=== PATIENT | male | born 1980 | race Caucasian/White ===

== ENCOUNTER → 2016-07-08 | Outpatient (CLI) | payer BC ==
--- NOTE | 2016-07-08 19:11 | CT ---
EXAMINATION TYPE: CT abdomen pelvis wo/w con DATE OF EXAM: 07/08/2016 6:16 PM COMPARISON: NONE HISTORY: Generalized abdominal pain, chronic pancreatitis. CT DLP: 1633.00 mGycm Automated exposure control for dose reduction was used. TECHNIQUE: Helical acquisition of images was performed from the lung bases through the pelvis. CONTRAST: Performed with Oral Contrast and without and with IV Contrast, patient injected with 100 mL of Omnipa que 300. FINDINGS: The lung bases are clear of consolidation. There is no pleural effusion. Heart size is normal. Liver spleen gallbladder appear normal. Bile ducts are not dilated. Pancreas is not enlarged. There i s minimal fat stranding on the anterior aspect of the pancreatic head. I see no definite pancreatic m ass. There is no adrenal mass. Kidneys show satisfactory contrast opacification. There is no hydronephrosi s. Noncontrast images show no renal stone. There is no retroperitoneal adenopathy. There is no ascite s. Bladder distends smoothly. I see no intestinal wall thickening. There are no dilated loops. I see no bony destructive process. Lumbar vertebra appear normal. There is slight decreased density in the liver consistent with fatty infiltration on the noncontrast images.: Normal appendix IMPRESSION: THERE IS EVIDENCE OF MILD FATTY INFILTRATION OF LIVER. THERE IS MILD FAT STRANDING ANTERIOR TO THE PA NCREATIC HEAD CONSISTENT WITH MILD FOCAL PANCREATITIS. NO CALCIFICATION OR PSEUDOCYST SEEN.
== END | disposition home or self-care (01) ==
LOC: RADCTMAIN 15:15
PROVIDERS: ATTEND Family Medicine
DX: K76.0 Fatty (change of) liver, not elsewhere classified (principal)
CPT/HCPCS: 74178; Q9967

== ENCOUNTER → 2019-06-03 | Outpatient (CLI) | payer OTHER ==
--- NOTE | 2019-06-03 09:50 | US ---
EXAMINATION TYPE: US abdomen complete DATE OF EXAM: 06/03/2019 COMPARISON: CT dated 07/08/2016 and ultrasound dated 03/07/2016 CLINICAL HISTORY: R94.5 ABN RESULTS OF LIVER FUNCTIONS,F10.10 ALCOHOL ABUSE. Abnormal labs. No abdom en pain. EXAM MEASUREMENTS: Liver Length: 15.8 cm Gallbladder Wall: 0.2 cm CBD: 0.3 cm Spleen: 8.4 cm Right Kidney: 10.8 x 5.0 x 4.8 cm Left Kidney: 10.7 x 5.4 x 5.8 cm Pancreas: Heterogenous and hypoechoic. Liver: There is increased echogenicity of the hepatic parenchyma with diminished visualization of th e portal triads most commonly relating to hepatic steatosis and limiting evaluation for underlying he patic masses. Gallbladder: wnl Evidence for sonographic Belle's sign: neg CBD: wnl Spleen: wnl Right Kidney: No hydronephrosis or masses seen Left Kidney: No hydronephrosis or masses seen Upper IVC: wnl Abd Aorta: No AAA visualized. The intrahepatic portion of the IVC and proximal abdominal aorta are within normal limits. There is no evidence of cholelithiasis. Common bile duct is unremarkable. The visualized portions of the dhaliwal creas are homogenous. The spleen is unremarkable. Kidneys are symmetric and free of hydronephrosis. No renal lesions are seen. IMPRESSION: 1. Heterogenous hepatic echotexture that may be on the basis of hepatic steatosis or other hepatocell ular disease in this patient with known alcohol abuse. 2. Heterogenous appearance of the pancreas that may be on the basis of acute or chronic pancreatitis. Correlate with serum amylase and lipase.
== END | disposition home or self-care (01) ==
LOC: RADUSWWP 07:33
PROVIDERS: ATTEND Family Medicine
DX: F10.10 Alcohol abuse, uncomplicated (principal); R93.2 Abnormal findings on diagnostic imaging of liver and biliary tract
CPT/HCPCS: 76700

== ENCOUNTER → 2022-12-01 | Outpatient (CLI) | payer OTHER ==
--- NOTE | 2022-12-02 02:42 | EEG ---
ELECTROENCEPHALOGRAM REPORT CLINICAL HISTORY: This is a 42-year-old gentleman with reported seizure-like activity about a week ago, as well as history of alcohol use that is reported. The video EEG is obtained to evaluate for seizure epileptiform activity. RELEVANT MEDICATION: None. The patient is not on any antiepileptic drugs that is reported on the medical chart. EEG TYPE: A routine 21-channel EEG is performed with video using the 10/20 electrode placement system. DESCRIPTION: Wakefulness is only obtained. During awake state, the posterior-dominant rhythm consists of low to moderate voltage of 9 to 9.5 hertz activity that is well modulated and well sustained. There is no physiological sleep architecture. There is no focal slowing. Interictal and ictal are none. ACTIVATION PROCEDURE: Photic stimulation did not evoke a positive driving response. There is no abnormality during photic stimulation. Hyperventilation is not performed. CLINICAL INTERPRETATION: This is a normal routine EEG. There is no focal slowing, epileptiform discharge or seizure on the EEG. A normal routine EEG does not rule out underlying epilepsy. Clinical correlation is recommended. MMIDALIA / WILLYN: [id number] /
== END ==
LOC: NEUROMAIN 07:30
PROVIDERS: ATTEND Family Medicine
DX: G40.89 Other seizures (principal)
CPT/HCPCS: 95816

== ENCOUNTER → 2023-07-25 | Outpatient (CLI) | payer OTHER ==
--- NOTE | 2023-07-25 15:26 | US ---
EXAMINATION TYPE: US liver DATE OF EXAM: 07/25/2023 COMPARISON: 08/02/2022 CLINICAL INDICATION: Male, 43 years old with history of R93.2 ABNORMAL FINDINGS ON DX IMAGING OF LIVE R AND; abnormal liver function test. TECHNIQUE: Multiple sonographic images of the right upper quadrant are obtained. FINDINGS: EXAM MEASUREMENTS: Liver Length: 15.5 cm Gallbladder Wall: .2 cm CBD: .3 cm Right Kidney: 11.3 x 5.0 x 5.0 cm Pancreas: No gross abnormality Liver: Normal homogeneous appearance without focal lesion. The 1 cm echogenic lesion seen previously not seen today. Gallbladder: wnl Evidence for sonographic Belle's sign: no CBD: wnl Right Kidney: wnl IMPRESSION: No gallstones or biliary ductal dilatation. Normal homogeneous appearance of the liver.
== END | disposition home or self-care (01) ==
LOC: RADUSWWP 07:16
PROVIDERS: ATTEND Family Medicine
DX: R93.2 Abnormal findings on diagnostic imaging of liver and biliary tract (principal)
CPT/HCPCS: 76705

== ENCOUNTER 2024-10-03 12:52 | Inpatient (IN) | payer OTHER ==
[2024-10-03] MEDS ORDERED: ONDANSETRON 4 MG/2 ML VIAL IVP PRN (22:32)
[2024-10-03] MEDS: LORazepam 1 MG/0.5 ML VIAL IV PRN ×2 (22:46→23:47)
[2024-10-03] MEDS: SODIUM CHLORIDE 0.9% 1,000 ML IV SCH (22:54)
[2024-10-03] MEDS: chlordiazePOXIDE 25 MG CAP PO SCH (22:55)
[2024-10-04] MEDS: HALOPERIDOL LACTATE 5 MG/ML 1 ML VIAL IVP PRN ×2 (00:09→13:39)
[2024-10-04 01:37] LABS: Glucose,Whole Blood 122 mg/dL (70-110)
[2024-10-04] MEDS: DEXMEDETOMIDINE/0.9% NACL(PMX) 400 MCG in EMPTY BAG 1 BAG IV SCH (01:46)
[2024-10-04 03:06] LABS: Basophils # (A) 0.02 10*3/uL (0.00-0.10); Basophils % (A) 0.4 %; Eosinophils # (A) 0.01 10*3/uL (0.04-0.35); Eosinophils % (A) 0.2 %; HCT 42.2 % (39.6-50.0); HGB 15.2 g/dL (13.0-17.0); Immature Platelet Fraction 3.5 % (1.1-6.1); Lymphocytes # (A) 0.69 10*3/uL (0.90-5.00); Lymphocytes % (A) 12.8 %; MCH 32.8 pg (27.0-32.0); MCV 91.1 fL (80.0-97.0); Mean Platelet Volume 9.7 fL (9.5-12.2); Monocytes # (A) 0.69 10*3/uL (0.20-1.00); Monocytes % (A) 12.8 %; Neutrophils # (A) 3.97 10*3/uL (1.80-7.70); Neutrophils % (A) 73.6 %; Platelet Count 132 10*3/uL (140-440); RBC 4.63 10*6/uL (4.40-5.60); RDW 13.1 % (11.5-14.5); WBC 5.39 10*3/uL (4.50-10.00)
[2024-10-04 03:26] LABS: African American GFR (CKD) >90 (>60 ml/min/1.73 sqM); Anion Gap 11 mmol/L; Blood Urea Nitrogen 10 mg/dL (9-20); Calcium 9.8 mg/dL (8.4-10.2); Carbon Dioxide 24 mmol/L (22-30); Chloride 96 mmol/L (98-107); Glucose 110 mg/dL (74-99); Magnesium 1.8 mg/dL (1.6-2.3); Non-African American GFR(CKD) >90 (>60 ml/min/1.73 sqM); Potassium 3.3 mmol/L (3.5-5.1); Sodium 131 mmol/L (137-145)
[2024-10-04] MEDS ORDERED: Magnesium Replacement Protocol 1 EACH MISC MISCELLANE PRN (03:47)
[2024-10-04] MEDS ORDERED: Potassium Replacement Protocol 1 EACH MISC MISCELLANE PRN (03:47)
[2024-10-04] MEDS: MAGNESIUM SULFATE-D5W PMX 1 GM in DEXTROSE/WATER 1 100ML.BAG IVPB ONE (04:34)
[2024-10-04] MEDS: POTASSIUM CHLORIDE ER 20 MEQ TAB.ER PO SCH (05:30)
[2024-10-04] MEDS: ATORVASTATIN 40 MG TAB PO SCH (09:18)
[2024-10-04] MEDS: THIAMINE 100 MG TAB PO SCH (09:18)
[2024-10-04] MEDS: QUEtiapine 50 MG TAB PO SCH (09:18)
[2024-10-04] MEDS: LOSARTAN 50 MG TAB PO SCH (09:18)
--- NOTE | 2024-10-04 10:27 | P.CNPUL ---
History of Present Illness Consult date: 10/04/24 Requesting physician: Carly Peoples Reason for consult: other Chief complaint: Alcohol withdrawal syndrome History of present illness: Pulmonary consult dated October 04, 2024. 44-year-old male who apparently was directly admitted to the hospital, from [facility], for alcohol withdrawal. I was notified about this patient, at about 1:15 in the morning, and we decided to move the patient down to the intensive care unit, so that he could be closely monitored and manage, and potentially started on dexmedetomidine. Currently there are no notes about this patient, and the patient was directly admitted to the floor. Anyway, he is seen this morning in the intensive care unit. He is quite agitated, and confused. The patient is currently on room air. He is getting saline at 50 cc an hour. The dexmedetomidine was turned. He is getting Ativan, Haldol, and we added Seroquel. He apparently has a history of hypertension, hyperlipidemia, as well as alcohol abuse, and pancreatitis. Apparently he drinks up to 24 beers a day. We cannot really get any additional history on him. And again, there is no history in the record. Current laboratory data includes a white count of 5.39, hemoglobin 15.2, hematocrit 42.2, and platelet count 132,000. Sodium 131, potassium 3.3, chloride 76, CO2 24, anion gap 11, BUN 10, creatinine 0.51. Glucose is 110. Calcium 9.8. Outpatient medications included hydrochlorothiazide, losartan, and Lipitor. The patient apparently does smoke cigarettes. Unclear as to whether or not he uses any illegal drugs. Review of Systems REVIEW OF SYSTEMS: CONSTITUTIONAL: Alcohol withdrawal syndrome NEUROLOGIC: [ Negative.] HEENT: [ Negative.] CARDIAC: [Negative.] PULMONARY: [Negative.] GI: [Negative.] : [Negative.] RHEUMATOLOGIC: [ Negative.] IMMUNOLOGIC: [ Negative.] ENDOCRINE: [Negative. ] DERMATOLOGIC: [Negative.] Past Medical History Smoking Status: Current every day smoker Medications and Allergies Home Medications Medication Instructions Recorded Confirmed Type Atorvastatin [Lipitor] 40 mg PO DAILY 10/04/24 10/04/24 History Losartan [Cozaar] 50 mg PO DAILY 10/04/24 10/04/24 History hydroCHLOROthiazide [Hydrodiuril] 25 mg PO DAILY 10/04/24 10/04/24 History Allergies Allergy/AdvReac Type Severity Reaction Status Date / Time No Known Allergies Allergy Verified 10/04/24 08:26 Physical Exam Osteopathic Statement: *. No significant issues noted on an osteopathic structural exam other than those noted in the History and Physical/Consult. Vitals: Vital Signs Temp Pulse Pulse Resp BP BP Pulse Ox 10/04/24 10:00 75 19 119/87 96 10/04/24 09:00 80 23 103/73 10/04/24 08:00 98.4 F 70 23 120/82 97 10/04/24 07:00 69 21 140/89 96 10/04/24 06:00 70 19 137/88 99 10/04/24 05:00 75 21 148/93 98 10/04/24 04:00 98.5 F 76 20 137/93 97 10/04/24 03:00 75 20 139/97 10/04/24 02:00 85 18 147/99 98 10/04/24 01:37 14 136/103 97 10/04/24 00:00 99.2 F 102 H 18 142/84 98 10/03/24 23:21 99.4 F 98 18 136/91 98 Intake and Output 10/03/24 10/04/24 10/04/24 22:59 06:59 14:59 Intake Total 789.867 207.394 Output Total 850 Balance -60.133 207.394 Intake: IV 10 Invasive Line 1 10 Intake, IV Titration 279.867 207.394 Amount Dexmedetomidine/0.9% NaCl 29.867 7.394 (Pmx) 400 mcg In Empty Bag 1 bag @ 0.2 MCG/KG/HR 3.18 mls/hr IV .Q24H [facility] Rx#:[id number] Sodium Chloride 0.9% 1, 250 200 000 ml @ 50 mls/hr IV . Q20H [facility] Rx#:[id number] Oral 500 Output: Urine 850 Other: Voiding Method Urinal Urinal # Voids 0 Weight 63.6 kg 61.1 kg No acute distress, confused, blank stare, no respiratory distress. Not able to give much history. HEENT examination is grossly unremarkable. Mucous membranes are moist. No oral lesions. Neck supple. Full range of motion. No adenopathy thyromegaly or neck vein distention. Cardiovascular examination reveals regular rhythm rate. S1-S2 normal. No S3 or S4. No discernible murmur noted. Lungs reveal clear breath sounds. Breath sounds are equal bilaterally. No adventitious lung sounds including wheezes rhonchi or crackles. Abdomen soft bowel sounds are heard. No masses or tenderness. Extremities are intact. No cyanosis clubbing or edema. Skin is without rash or lesion. Neurologic examination is brief but nonfocal. Results - Laboratory Findings CBC and BMP: 10/04/24 02:49 10/04/24 02:49 Abnormal lab findings: Abnormal Labs 10/04/24 10/04/24 10/04/24 01:36 02:49 02:49 MCH 32.8 H Plt Count 132 L Lymphocytes # 0.69 L Eosinophils # 0.01 L Sodium 131 L Potassium 3.3 L Chloride 96 L Creatinine 0.51 L Glucose 110 H POC Glucose (mg/dL) 122 H Assessment and Plan Assessment: Alcohol withdrawal syndrome. History of heavy alcohol consumption, primarily beer, up to 24 cans a day. History of hypertension. History of hyperlipidemia. Prior history of pancreatitis. Plan: Plan dated October 04, 2024. The patient was directly admitted to the hospital, to an inpatient floor, and then transferred down to the intensive care unit, because of alcohol withdrawal syndrome. The patient was receiving Ativan and Haldol on the floor, and, he was quite agitated, and confused. We transferred him down to the intensive care unit, for closer monitoring and management. The patient was given dexmedetomidine. Currently he is off of that medication. We increased doses of his other medications, and add Seroquel to the regimen. Labs are reviewed. There is no x-ray. Prognosis is guarded. We will continue to follow. Dictation was produced using [employer] software. Please excuse any grammatical, word or spelling errors. Time with Patient: Greater than 30
[2024-10-05] MEDS: ACETAMINOPHEN TAB 325 MG TAB PO PRN (05:09)
--- NOTE | 2024-10-05 07:51 | P.HPIM ---
History of Present Illness H&P Date: 10/04/24 Chief Complaint: Acute alcohol withdrawal 44-year-old male patient with history of hypertension, hyperlipidemia, history of pancreatitis, directly admitted to the hospital, from [facility], for alcohol withdrawal. Upon arrival to the hospital, critical care service was notified and decided to move the patient down to the intensive care unit and started on dexmedetomidine. Upon arrival to ICU patient was quite agitated, and confused. The patient is currently sleepy and barely arousable on tactile stimulation; remains on room air. Patient is getting Ativan, Haldol and Seroquel. The patient apparently does smoke cigarettes. Unclear as to whether or not he uses any illegal drugs. According to the chart patient drinks up to 24 beers a day. -- Blood work revealed a white count of 5.39, hemoglobin 15.2, hematocrit 42.2, and platelet count 132,000. Sodium 131, potassium 3.3, chloride 76, CO2 24, anion gap 11, BUN 10, creatinine 0.51. Glucose is 110. Calcium 9.8. Outpatient medications included hydrochlorothiazide, losartan, and Lipitor. Review of Systems ROS unobtainable: due to mental status Past Medical History Smoking Status: Current every day smoker Medications and Allergies Home Medications Medication Instructions Recorded Confirmed Type Atorvastatin [Lipitor] 40 mg PO DAILY 10/04/24 10/04/24 History Losartan [Cozaar] 50 mg PO DAILY 10/04/24 10/04/24 History hydroCHLOROthiazide [Hydrodiuril] 25 mg PO DAILY 10/04/24 10/04/24 History Allergies Allergy/AdvReac Type Severity Reaction Status Date / Time No Known Allergies Allergy Verified 10/04/24 08:26 Physical Exam Vitals: Vital Signs Temp Pulse Pulse Resp BP BP Pulse Ox 10/04/24 11:00 77 21 110/78 97 10/04/24 10:00 75 19 119/87 96 10/04/24 09:00 80 23 103/73 10/04/24 08:00 98.4 F 70 23 120/82 97 10/04/24 07:00 69 21 140/89 96 10/04/24 06:00 70 19 137/88 99 10/04/24 05:00 75 21 148/93 98 10/04/24 04:00 98.5 F 76 20 137/93 97 10/04/24 03:00 75 20 139/97 10/04/24 02:00 85 18 147/99 98 10/04/24 01:37 14 136/103 97 10/04/24 00:00 99.2 F 102 H 18 142/84 98 10/03/24 23:21 99.4 F 98 18 136/91 98 Intake and Output 10/03/24 10/04/24 10/04/24 22:59 06:59 14:59 Intake Total 789.867 257.394 Output Total 850 Balance -60.133 257.394 Intake: IV 10 Invasive Line 1 10 Intake, IV Titration 279.867 257.394 Amount Dexmedetomidine/0.9% NaCl 29.867 7.394 (Pmx) 400 mcg In Empty Bag 1 bag @ 0.2 MCG/KG/HR 3.18 mls/hr IV .Q24H [facility] Rx#:[id number] Sodium Chloride 0.9% 1, 250 250 000 ml @ 50 mls/hr IV . Q20H [facility] Rx#:[id number] Oral 500 Output: Urine 850 Other: Voiding Method Urinal Urinal # Voids 0 Weight 63.6 kg 61.1 kg No acute distress; arousable with tactile stimulation. HEENT examination is grossly unremarkable. Mucous membranes are moist. No oral lesions. Neck supple. Full range of motion. No adenopathy thyromegaly or neck vein distention. Cardiovascular examination reveals regular rhythm rate. S1-S2 normal. No S3 or S4. No discernible murmur noted. Lungs reveal clear breath sounds. Breath sounds are equal bilaterally. No adventitious lung sounds including wheezes rhonchi or crackles. Abdomen soft bowel sounds are heard. No masses or tenderness. Extremities are intact. No cyanosis clubbing or edema. Skin is without rash or lesion. Neurologic examination; unable to evaluate; moves all extremities. Results CBC & Chem 7: 10/04/24 02:49 10/04/24 02:49 Labs: Abnormal Lab Results - Last 24 Hours (Table) 10/04/24 10/04/24 10/04/24 Range/Units 01:36 02:49 02:49 MCH 32.8 H (27.0-32.0) pg Plt Count 132 L (140-440) 10*3/uL Lymphocytes # 0.69 L (0.90-5.00) 10*3/uL Eosinophils # 0.01 L (0.04-0.35) 10*3/uL Sodium 131 L (137-145) mmol/L Potassium 3.3 L (3.5-5.1) mmol/L Chloride 96 L (98-107) mmol/L Creatinine 0.51 L (0.66-1.25) mg/dL Glucose 110 H (74-99) mg/dL POC Glucose (mg/dL) 122 H (70-110) mg/dL Assessment and Plan Assessment: 1. Acute alcohol withdrawal/history of alcohol abuse - Patient remains on IV Precedex; Librium 25 mg 3 times daily; IV Ativan per [facility] protocol; Seroquel 50 mg twice daily and Haldol 8 mg IV every 4 hours as needed for agitation and psychosis 2. Hyponatremia; likely related to alcohol abuse; patient is currently on IV fluid; monitor electrolytes closely 3. Hypokalemia; supplemented; continue to monitor electrolytes and supplement as needed 4. History of hypertension; HydroDIURIL 25 mg daily and losartan 50 mg daily; will resume once patient is more alert and responsive 5. Hyperlipidemia; Lipitor 40 mg daily DVT prophylaxis; SCDs CODE STATUS; full code
--- NOTE | 2024-10-05 09:20 | P.PN ---
Subjective Progress Note Date: 10/05/24 Principal diagnosis: Alcohol withdrawal syndrome. Pulmonary consult dated October 04, 2024. 44-year-old male who apparently was directly admitted to the hospital, from [facility], for alcohol withdrawal. I was notified about this patient, at about 1:15 in the morning, and we decided to move the patient down to the intensive care unit, so that he could be closely monitored and manage, and potentially started on dexmedetomidine. Currently there are no notes about this patient, and the patient was directly admitted to the floor. Anyway, he is seen this morning in the intensive care unit. He is quite agitated, and confused. The patient is currently on room air. He is getting saline at 50 cc an hour. The dexmedetomidine was turned. He is getting Ativan, Haldol, and we added Seroquel. He apparently has a history of hypertension, hyperlipidemia, as well as alcohol abuse, and pancreatitis. Apparently he drinks up to 24 beers a day. We cannot really get any additional history on him. And again, there is no history in the record. Current laboratory data includes a white count of 5.39, hemoglobin 15.2, hematocrit 42.2, and platelet count 132,000. Sodium 131, potassium 3.3, chloride 76, CO2 24, anion gap 11, BUN 10, creatinine 0.51. Glucose is 110. Calcium 9.8. Outpatient medications included hydrochlorothiazide, losartan, and Lipitor. The patient apparently does smoke cigarettes. Unclear as to whether or not he uses any illegal drugs. Progress note dated October 05, 2024. 44-year-old male with history of chronic alcohol abuse. The patient was admitted to the hospital with alcohol withdrawal syndrome, and transferred down to the intensive care unit, for more close monitoring, and management. Currently, the patient is seen today in room 256. He is on room air. He is getting saline at 50 cc an hour. He continues on dexmedetomidine at 0.3 mcg/kg/h. In addition, he is getting Librium, Ativan, and Haldol. No new labs today, other than a magnesium level of 1.7. Objective - Vital Signs Vital signs: Vital Signs Temp 99.1 F 10/05/24 08:00 Pulse 70 10/05/24 09:00 Resp 21 10/05/24 09:00 BP 138/87 10/05/24 09:00 Pulse Ox 97 10/05/24 09:00 FiO2 Intake & Output 10/04/24 10/05/24 10/05/24 18:59 06:59 18:59 Intake Total 890.589 653.662 395.306 Output Total 800 1250 Balance 90.589 -596.338 395.306 Weight 60.6 kg Intake: Intake, IV Titration 650.589 653.662 155.306 Amount Dexmedetomidine/0.9% NaCl 50.589 53.662 55.306 (Pmx) 400 mcg In Empty Bag 1 bag @ 0.2 MCG/KG/HR 3.18 mls/hr IV .Q24H [facility] Rx#:[id number] Sodium Chloride 0.9% 1, 600 600 100 000 ml @ 50 mls/hr IV . Q20H [facility] Rx#:[id number] Oral 240 240 Output: Urine 800 1250 Straight 750 Other: Voiding Method Urinal Urinal Urinal # Voids 0 0 0 - Exam No acute distress, confused, blank stare, no respiratory distress. Not able to give much history. HEENT examination is grossly unremarkable. Mucous membranes are moist. No oral lesions. Neck supple. Full range of motion. No adenopathy thyromegaly or neck vein distention. Cardiovascular examination reveals regular rhythm rate. S1-S2 normal. No S3 or S4. No discernible murmur noted. Lungs reveal clear breath sounds. Breath sounds are equal bilaterally. No adventitious lung sounds including wheezes rhonchi or crackles. Abdomen soft bowel sounds are heard. No masses or tenderness. Extremities are intact. No cyanosis clubbing or edema. Skin is without rash or lesion. Neurologic examination is brief but nonfocal. - Labs CBC & Chem 7: 10/04/24 02:49 10/04/24 02:49 Assessment and Plan Assessment: Alcohol withdrawal syndrome. History of heavy alcohol consumption, primarily beer, up to 24 cans a day. History of hypertension. History of hyperlipidemia. Prior history of pancreatitis. Plan: Plan dated October 04, 2024. The patient was directly admitted to the hospital, to an inpatient floor, and then transferred down to the intensive care unit, because of alcohol withdrawal syndrome. The patient was receiving Ativan and Haldol on the floor, and, he was quite agitated, and confused. We transferred him down to the intensive care unit, for closer monitoring and management. The patient was given dexmedet omidine. Currently he is off of that medication. We increased doses of his other medications, and add Seroquel to the regimen. Labs are reviewed. There is no x-ray. Prognosis is guarded. We will continue to follow. Dictation was produced using [employer] software. Please excuse any grammatical, word or spelling errors. Plan dated October 05, 2024. The patient is seen today in the intensive care unit, room 256. He continues on a number of different medications including Ativan, Librium, Haldol, Seroquel. He is also on dexmedetomidine right now at 0.3 mcg/kg/h. I have asked the nu es to continue to use the Ativan, and Haldol, [id number]. Additional recommendations and suggestions are forthcoming. Labs, x-rays, and medications are reviewed. Prognosis is guarded. We will continue to follow. Dictation was produced using [employer] software. Please excuse any grammatical, word or spelling errors. Time with Patient: Less than 30
[2024-10-05] MEDS ORDERED: Magnesium Replacement Protocol 1 EACH MISC MISCELLANE PRN (09:33)
[2024-10-05] MEDS: MAGNESIUM SULFATE-D5W PMX 1 GM in DEXTROSE/WATER 1 100ML.BAG IVPB ONE (09:43)
[2024-10-05 09:59] LABS: African American GFR (CKD) >90 (>60 ml/min/1.73 sqM); Anion Gap 11 mmol/L; Blood Urea Nitrogen 8 mg/dL (9-20); Calcium 9.5 mg/dL (8.4-10.2); Carbon Dioxide 21 mmol/L (22-30); Chloride 101 mmol/L (98-107); Glucose 104 mg/dL (74-99); Non-African American GFR(CKD) >90 (>60 ml/min/1.73 sqM); Potassium 3.6 mmol/L (3.5-5.1); Sodium 133 mmol/L (137-145)
[2024-10-05] MEDS ORDERED: Potassium Replacement Protocol 1 EACH MISC MISCELLANE PRN (10:03)
[2024-10-05] MEDS: POTASSIUM CHLORIDE ER 20 MEQ TAB.ER PO SCH (10:12)
--- NOTE | 2024-10-05 13:11 | P.PN ---
Subjective Progress Note Date: 10/05/24 44-year-old male patient with history of hypertension, hyperlipidemia, history of pancreatitis, directly admitted to the hospital, from [facility], for alcohol withdrawal. Upon arrival to the hospital, critical care service was notified and decided to move the patient down to the intensive care unit and started on dexmedetomidine. Upon arrival to ICU patient was quite agitated, and confused. The patient is currently sleepy and barely arousable on tactile stimulation; remains on room air. Patient is getting Ativan, Haldol and Seroquel. The patient apparently does smoke cigarettes. Unclear as to whether or not he uses any illegal drugs. According to the chart patient drinks up to 24 beers a day. -- Blood work revealed a white count of 5.39, hemoglobin 15.2, hematocrit 42.2, and platelet count 132,000. Sodium 131, potassium 3.3, chloride 76, CO2 24, anion gap 11, BUN 10, creatinine 0.51. Glucose is 110. Calcium 9.8. Outpatient medications included hydrochlorothiazide, losartan, and Lipitor. -- Patient remains in ICU; has been weaned off of Precedex; remains on IV Ativan per protocol along with Haldol and Librium Objective - Vital Signs Vital signs: Vital Signs Temp 102 F H 10/05/24 06:00 Pulse 74 10/05/24 07:00 Resp 19 10/05/24 07:00 BP 148/84 10/05/24 07:00 Pulse Ox 96 10/05/24 07:00 FiO2 Intake & Output 10/04/24 10/05/24 10/05/24 18:59 06:59 18:59 Intake Total 890.589 653.662 Output Total 800 1250 Balance 90.589 -596.338 Weight 60.6 kg Intake: Intake, IV Titration 650.589 653.662 Amount Dexmedetomidine/0.9% NaCl 50.589 53.662 (Pmx) 400 mcg In Empty Bag 1 bag @ 0.2 MCG/KG/HR 3.18 mls/hr IV .Q24H [facility] Rx#:[id number] Sodium Chloride 0.9% 1, 600 600 000 ml @ 50 mls/hr IV . Q20H [facility] Rx#:[id number] Oral 240 Output: Urine 800 1250 Straight 750 Other: Voiding Method Urinal Urinal # Voids 0 0 - Exam No acute distress; arousable with tactile stimulation. HEENT examination is grossly unremarkable. Mucous membranes are moist. No oral lesions. Neck supple. Full range of motion. No adenopathy thyromegaly or neck vein distention. Cardiovascular examination reveals regular rhythm rate. S1-S2 normal. No S3 or S4. No discernible murmur noted. Lungs reveal clear breath sounds. Breath sounds are equal bilaterally. No adventitious lung sounds including wheezes rhonchi or crackles. Abdomen soft bowel sounds are heard. No masses or tenderness. Extremities are intact. No cyanosis clubbing or edema. Skin is without rash or lesion. Neurologic examination; unable to evaluate; moves all extremities. - Labs CBC & Chem 7: 10/04/24 02:49 10/05/24 07:22 Assessment and Plan Assessment: 1. Acute alcohol withdrawal/history of alcohol abuse - Patient remains on IV Precedex; Librium 25 mg 3 times daily; IV Ativan per [facility] protocol; Seroquel 50 mg twice daily and Haldol 8 mg IV every 4 hours as needed for agitation and psychosis 2. Hyponatremia; likely related to alcohol abuse; patient is currently on IV f luid; monitor electrolytes closely 3. Hypokalemia; supplemented; continue to monitor electrolytes and supplement as needed 4. History of hypertension; HydroDIURIL 25 mg daily and losartan 50 mg daily; will resume once patient is more alert and responsive 5. Hyperlipidemia; Lipitor 40 mg daily DVT prophylaxis; SCDs CODE STATUS; full code
[2024-10-05] MEDS: IBUPROFEN 600 MG TAB PO PRN (16:02)
[2024-10-06 04:50] LABS: African American GFR (CKD) >90 (>60 ml/min/1.73 sqM); Anion Gap 8 mmol/L; Blood Urea Nitrogen 7 mg/dL (9-20); Calcium 9.7 mg/dL (8.4-10.2); Carbon Dioxide 23 mmol/L (22-30); Chloride 105 mmol/L (98-107); Glucose 100 mg/dL (74-99); Magnesium 1.9 mg/dL (1.6-2.3); Non-African American GFR(CKD) >90 (>60 ml/min/1.73 sqM); Potassium 4.1 mmol/L (3.5-5.1); Sodium 136 mmol/L (137-145)
--- NOTE | 2024-10-06 05:56 | P.PN ---
Subjective Progress Note Date: 10/06/24 Principal diagnosis: Alcohol withdrawal syndrome. Pulmonary consult dated October 04, 2024. 44-year-old male who apparently was directly admitted to the hospital, from [facility], for alcohol withdrawal. I was notified about this patient, at about 1:15 in the morning, and we decided to move the patient down to the intensive care unit, so that he could be closely monitored and manage, and potentially started on dexmedetomidine. Currently there are no notes about this patient, and the patient was directly admitted to the floor. Anyway, he is seen this morning in the intensive care unit. He is quite agitated, and confused. The patient is currently on room air. He is getting saline at 50 cc an hour. The dexmedetomidine was turned. He is getting Ativan, Haldol, and we added Seroquel. He apparently has a history of hypertension, hyperlipidemia, as well as alcohol abuse, and pancreatitis. Apparently he drinks up to 24 beers a day. We cannot really get any additional history on him. And again, there is no history in the record. Current laboratory data includes a white count of 5.39, hemoglobin 15.2, hematocrit 42.2, and platelet count 132,000. Sodium 131, potassium 3.3, chloride 76, CO2 24, anion gap 11, BUN 10, creatinine 0.51. Glucose is 110. Calcium 9.8. Outpatient medications included hydrochlorothiazide, losartan, and Lipitor. The patient apparently does smoke cigarettes. Unclear as to whether or not he uses any illegal drugs. Progress note dated October 05, 2024. 44-year-old male with history of chronic alcohol abuse. The patient was admitted to the hospital with alcohol withdrawal syndrome, and transferred down to the intensive care unit, for more close monitoring, and management. Currently, the patient is seen today in room 256. He is on room air. He is getting saline at 50 cc an hour. He continues on dexmedetomidine at 0.3 mcg/kg/h. In addition, he is getting Librium, Ativan, and Haldol. No new labs today, other than a magnesium level of 1.7. Progress note dated October 06, 2024. 44-year-old male seen in room 256. He is resting comfortably in bed. He is on room air. He is getting saline at 50 cc an hour. The patient has not required any additional dexmedetomidine. The patient was admitted with a history of al cohol abuse, and alcohol withdrawal syndrome. The patient was initially admitted to the general medical floor, but needed further monitoring and management, and dexmedetomidine. Current laboratory includes a sodium 136, potassium 4.1, chlorides 105, CO2 23, anion gap 8, BUN 7, creatinine 0.58. Gl ucose is 100. Calcium 9.7. Magnesium 1.9. Objective - Vital Signs Vital signs: Vital Signs Temp 98.4 F 10/06/24 04:00 Pulse 100 10/06/24 05:00 Resp 17 10/06/24 05:00 BP 159/102 10/06/24 05:00 Pulse Ox 98 10/06/24 05:00 FiO2 Intake & Output 10/05/24 10/05/24 10/06/24 06:59 18:59 06:59 Intake Total 364.186 1190.306 740 Output Total 1250 1100 700 Balance -596.338 255.306 40 Weight 60.6 kg 58.2 kg Intake: Intake, IV Titration 653.662 155.306 500 Amount Dexmedetomidine/0.9% NaCl 53.662 55.306 (Pmx) 400 mcg In Empty Bag 1 bag @ 0.2 MCG/KG/HR 3.18 mls/hr IV .Q24H [facility] Rx#:[id number] Sodium Chloride 0.9% 1, 600 100 500 000 ml @ 50 mls/hr IV . Q20H [facility] Rx#:[id number] Oral 1200 240 Output: Urine 1250 1100 700 Straight 750 Other: Voiding Method Urinal Urinal Toilet Urinal # Voids 0 0 0 - Exam No acute distress, confused, blank stare, no respiratory distress. Not able to give much history. HEENT examination is grossly unremarkable. Mucous membranes are moist. No oral lesions. Neck supple. Full range of motion. No adenopathy thyromegaly or neck vein distention. Cardiovascular examination reveals regular rhythm rate. S1-S2 normal. No S3 or S4. No discernible murmur noted. Lungs reveal clear breath sounds. Breath sounds are equal bilaterally. No adventitious lung sounds including wheezes rhonchi or crackles. Abdomen soft bowel sounds are heard. No masses or tenderness. Extremities are intact. No cyanosis clubbing or edema. Skin is without rash or lesion. Neurologic examination is brief but nonfocal. - Labs CBC & Chem 7: 10/04/24 02:49 10/06/24 04:10 Labs: Abnormal Lab Results - Last 24 Hours (Table) 10/05/24 10/06/24 Range/Units 07:22 04:10 Sodium 133 L 136 L (137-145) mmol/L Carbon Dioxide 21 L (22-30) mmol/L BUN 8 L 7 L (9-20) mg/dL Creatinine 0.57 L 0.58 L (0.66-1.25) mg/dL Glucose 104 H 100 H (74-99) mg/dL Assessment and Plan Assessment: Alcohol withdrawal syndrome. History of heavy alcohol consumption, primarily beer, up to 24 cans a day. History of hypertension. History of hyperlipidemia. Prior history of pancreatitis. Plan: Plan dated October 04, 2024. The patient was directly admitted to the hospital, to an inpatient floor, and then transferred down to the intensive care unit, because of alcohol withdrawal syndrome. The patient was receiving Ativan and Haldol on the floor, and, he was quite agitated, and confused. We transferred him down to the intensive care unit, for closer monitoring and management. The patient was given dexmedetomidine. Currently he is off of that medication. We increased doses of his other medications, and add Seroquel to the regimen. Labs are reviewed. There is no x-ray. Prognosis is guarded. We will continue to follow. Dictation was produced using [employer] software. Please excuse any grammatical, word or spelling errors. Plan dated October 05, 2024. The patient is seen today in the intensive care unit, room 256. He continues on a number of different medications including Ativan, Librium, Haldol, Seroquel. He is also on dexmedetomidine right now at 0.3 mcg/kg/h. I have asked the nurses to continue to use the Ativan, and Haldol, [id number]. Additional recommendations and suggestions are forthcoming. Labs, x-rays, and medications are reviewed. Prognosis is guarded. We will continue to follow. Dictation was produced using [employer] software. Please excuse any grammatical, word or spelling errors. Plan dated October 06, 2024. The patient appears to be doing reasonably well. He is on a number of different medications for his alcohol withdrawal syndrome, including Librium, Haldol, Ativan, and Seroquel. The patient appears to be relatively stable today. He has not required any more dexmedetomidine. He is currently on room air. The patient could be considered for possible transfer out of the intensive care unit. Labs, x-rays, and medications are reviewed. Prognosis is guarded. The patient has been counseled about alcohol cessation. Dictation was produced using [employer] software. Please excuse any grammatical, word or spelling errors. Time with Patient: Less than 30
[2024-10-06] MEDS: MAGNESIUM SULFATE-D5W PMX 1 GM in DEXTROSE/WATER 1 100ML.BAG IVPB ONE (06:10)
[2024-10-06] MEDS: LORazepam 1 MG/0.5 ML VIAL IV PRN (10:48)
[2024-10-06] MEDS: HALOPERIDOL LACTATE 5 MG/ML 1 ML VIAL IVP PRN (11:39)
[2024-10-06] MEDS: DEXMEDETOMIDINE/0.9% NACL(PMX) 400 MCG in EMPTY BAG 1 BAG IV SCH (12:51)
--- NOTE | 2024-10-06 18:37 | P.PN ---
Subjective Progress Note Date: 10/06/24 44-year-old male patient with history of hypertension, hyperlipidemia, history of pancreatitis, directly admitted to the hospital, from [facility], for alcohol withdrawal. Upon arrival to the hospital, critical care service was notified and decided to move the patient down to the intensive care unit and started on dexmedetomidine. Upon arrival to ICU patient was quite agitated, and confused. The patient is currently sleepy and barely arousable on tactile stimulation; remains on room air. Patient is getting Ativan, Haldol and Seroquel. The patient apparently does smoke cigarettes. Unclear as to whether or not he uses any illegal drugs. According to the chart patient drinks up to 24 beers a day. -- Blood work revealed a white count of 5.39, hemoglobin 15.2, hematocrit 42.2, and platelet count 132,000. Sodium 131, potassium 3.3, chloride 76, CO2 24, anion gap 11, BUN 10, creatinine 0.51. Glucose is 110. Calcium 9.8. Outpatient medications included hydrochlorothiazide, losartan, and Lipitor. -- Patient remains in ICU; has been weaned off of Precedex; remains on IV Ativan per protocol along with Haldol and Librium 10/06/2024 Patient is seen and evaluated sitting up in bedside chair; denies any specific complaints at this time; he is alert and responsive Vital signs are reviewed and are stable; he is on room air. He is getting saline at 50 cc an hour. The patient has not required any additional dexmedetomidine. The patient was admitted with a history of alcohol abuse, and alcohol withdrawal syndrome. The patient was initially admitted to the general medical floor, but needed further monitoring and management, and dexmedetomidine. Current laboratory includes a sodium 136, potassium 4.1, chlorides 105, CO2 23, anion gap 8, BUN 7, creatinine 0.58. Glucose is 100. Calcium 9.7. Magnesium 1.9. Patient has been taken off of IV Precedex; remains on IV Ativan per [facility] protocol with scheduled Librium and Seroquel; Haldol 4 mg every 4 hours as needed for agitation -Plan to transfer patient out of ICU Objective - Vital Signs Vital signs: Vital Signs Temp 98.4 F 10/06/24 04:00 Pulse 125 H 10/06/24 07:00 Resp 18 10/06/24 07:00 BP 147/102 10/06/24 07:00 Pulse Ox 100 10/06/24 07:00 FiO2 Intake & Output 10/05/24 10/06/24 10/06/24 18:59 06:59 18:59 Intake Total 6149.792 0272 50 Output Total 1100 1200 Balance 255.306 170 50 Weight 58.2 kg Intake: Intake, IV Titration 155.306 650 50 Amount Dexmedetomidine/0.9% NaCl 55.306 (Pmx) 400 mcg In Empty Bag 1 bag @ 0.2 MCG/KG/HR 3.18 mls/hr IV .Q24H [facility] Rx#:[id number] Magnesium Sulfate-D5w Pmx 100 1 gm In Dextrose/Water 1 100ml.bag @ 100 mls/hr IVPB ONCE ONE Rx#: [id number] Sodium Chloride 0.9% 1, 100 550 50 000 ml @ 50 mls/hr IV . Q20H [facility] Rx#:[id number] Oral 1200 720 Output: Urine 1100 1200 Other: Voiding Method Urinal Toilet Urinal # Voids 0 0 - Exam No acute distress; arousable with tactile stimulation. HEENT examination is grossly unremarkable. Mucous membranes are moist. No oral lesions. Neck supple. Full range of motion. No adenopathy thyromegaly or neck vein distention. Cardiovascular examination reveals regular rhythm rate. S1-S2 normal. No S3 or S4. No discernible murmur noted. Lungs reveal clear breath sounds. Breath sounds are equal bilaterally. No adventitious lung sounds including wheezes rhonchi or crackles. Abdomen soft bowel sounds are heard. No masses or tenderness. Extremities are intact. No cyanosis clubbing or edema. Skin is without rash or lesion. Neurologic examination; unable to evaluate; moves all extremities. - Labs CBC & Chem 7: 10/04/24 02:49 10/06/24 04:10 Labs: Abnormal Lab Results - Last 24 Hours (Table) 10/05/24 10/06/24 Range/Units 07:22 04:10 Sodium 133 L 136 L (137-145) mmol/L Carbon Dioxide 21 L (22-30) mmol/L BUN 8 L 7 L (9-20) mg/dL Creatinine 0.57 L 0.58 L (0.66-1.25) mg/dL Glucose 104 H 100 H (74-99) mg/dL Assessment and Plan Assessment: 1. Acute alcohol withdrawal/history of alcohol abuse - Patient remains on IV Precedex; Librium 25 mg 3 times daily; IV Ativan per [facility] protocol; Seroquel 50 mg twice daily and Haldol 8 mg IV every 4 hours as needed for agitation and psychosis 2. Hyponatremia; likely related to alcohol abuse; patient is currently on IV f luid; monitor electrolytes closely 3. Hypokalemia; supplemented; continue to monitor electrolytes and supplement as needed 4. History of hypertension; HydroDIURIL 25 mg daily and losartan 50 mg daily; will resume once patient is more alert and responsive 5. Hyperlipidemia; Lipitor 40 mg daily DVT prophylaxis; SCDs CODE STATUS; full code
[2024-10-07 06:39] LABS: African American GFR (CKD) >90 (>60 ml/min/1.73 sqM); Anion Gap 6 mmol/L; Blood Urea Nitrogen 9 mg/dL (9-20); Calcium 9.8 mg/dL (8.4-10.2); Carbon Dioxide 25 mmol/L (22-30); Chloride 103 mmol/L (98-107); Glucose 85 mg/dL (74-99); Non-African American GFR(CKD) >90 (>60 ml/min/1.73 sqM); Potassium 4.4 mmol/L (3.5-5.1); Sodium 134 mmol/L (137-145)
--- NOTE | 2024-10-07 12:24 | P.PN ---
Subjective Progress Note Date: 10/07/24 10/07/2024, patient is being seen for a follow-up. The patient is calm and comfortable and the patient was taken off the Precedex at around 4 AM this morning. His CIWA scale is at 2. He received a dose of Ativan 4 AM this morning at 1 mg. The patient remains on Librium 25 mg p.o. 3 times daily, Seroquel 50 mg p.o. twice daily and Ativan per CIWA protocol. Calm and comfortable. Resting comfortably in bed. Tolerating diet. No agitation. Sodium levels at 134, potassium is at 4.4, BUN is 9 with a creatinine of 0.5. No other significant events overnight. Remains on normal saline at rate of 50 c c an hour. Remains on Cozaar for blood pressure control. Receiving thiamine. Remains on Lipitor. Objective - Vital Signs Vital signs: Vital Signs Temp 97.7 F 10/07/24 04:00 Pulse 95 10/07/24 07:00 Resp 15 10/07/24 07:00 BP 144/98 10/07/24 07:00 Pulse Ox 99 10/07/24 07:00 FiO2 Intake & Output 10/06/24 10/07/24 10/07/24 18:59 06:59 18:59 Intake Total 4843.263 8687.871 50 Output Total 1200 1600 Balance 401.516 -518.129 50 Weight 58.6 kg Intake: Intake, IV Titration 641.516 601.871 50 Amount Dexmedetomidine/0.9% NaCl 41.516 51.871 (Pmx) 400 mcg In Empty Bag 1 bag @ 0.2 MCG/KG/HR 2.91 mls/hr IV .Q24H [facility] Rx#:[id number] Sodium Chloride 0.9% 1, 600 550 50 000 ml @ 50 mls/hr IV . Q20H [facility] Rx#:[id number] Oral 960 480 Output: Urine 1200 1600 Other: Voiding Method Toilet Toilet Urinal Urinal # Voids 1 0 - Exam The patient appeared well nourished and normally developed. Vital signs as documented. Lethargic, sleepy and able to communicate Head exam is unremarkable. No scleral icterus or corneal arcus noted. Neck is without jugular venous distension, thyromegaly, or carotid bruits. Carotid upstrokes are brisk bilaterally. Lungs are clear to auscultation and percussion. Cardiac exam reveals the PMI to be normally sized and situated. Rhythm is regular. First and second heart sounds normal. No murmurs, rubs or gallops. Abdominal exam reveals normal bowel sounds, no masses, no organomegaly and no aortic enlargement. Extremities are nonedematous and both femoral and pedal pulses are normal. Examination of the skin revealed no evidence of significant rashes, suspicious appearing nevi or other concerning lesions. Neurologically, the patient is awake and alert and the patient does not have any focal neurological deficit. Cranial nerves are essentially intact. Neurologic exam is nonfocal and there is no significant agitation or confusion or tremors. - Labs CBC & Chem 7: 10/04/24 02:49 10/07/24 05:33 Labs: Abnormal Lab Results - Last 24 Hours (Table) 10/07/24 Range/Units 05:33 Sodium 134 L (137-145) mmol/L Creatinine 0.58 L (0.66-1.25) mg/dL Assessment and Plan Plan: Delirium tremens secondary to alcohol withdrawal, recovering and the patient is currently off Precedex. CIWA scale from this morning is up to History of heavy alcohol consumption, primarily beer, up to 24 cans a day. History of hypertension. History of hyperlipidemia. Prior history of pancreatitis. Plan: Patient is currently on room air oxygen Normal saline at rate of 50 cc an hour Mental status is adequate and the patient is currently off Precedex Continue Librium 25 mg p.o. 3 times daily Continue Seroquel 50 mg p.o. twice daily Continue Ativan per CIWA protocol Monitor electrolytes Continue thiamine The patient can be transferred to regular medical surgical floor. Time with Patient: Greater than 30
[2024-10-08 05:00] LABS: African American GFR (CKD) >90 (>60 ml/min/1.73 sqM); Anion Gap 9 mmol/L; Blood Urea Nitrogen 8 mg/dL (9-20); Calcium 10.2 mg/dL (8.4-10.2); Carbon Dioxide 24 mmol/L (22-30); Chloride 104 mmol/L (98-107); Glucose 98 mg/dL (74-99); Non-African American GFR(CKD) >90 (>60 ml/min/1.73 sqM); Potassium 3.9 mmol/L (3.5-5.1); Sodium 137 mmol/L (137-145)
[2024-10-08 09:02] VITALS: BP 134/94; PULSE 96; RESP 17; TEMP 97.7
--- NOTE | 2024-10-08 10:15 | P.PN ---
Subjective Progress Note Date: 10/08/24 10/07/2024, patient is being seen for a follow-up. The patient is calm and comfortable and the patient was taken off the Precedex at around 4 AM this morning. His CIWA scale is at 2. He received a dose of Ativan 4 AM this morning at 1 mg. The patient remains on Librium 25 mg p.o. 3 times daily, Seroquel 50 mg p.o. twice daily and Ativan per [facility] protocol. Calm and comfortable. Resting comfortably in bed. Tolerating diet. No agitation. Sodium levels at 134, potassium is at 4.4, BUN is 9 with a creatinine of 0.5. No other significant events overnight. Remains on normal saline at rate of 50 c c an hour. Remains on Cozaar for blood pressure control. Receiving thiamine. Remains on Lipitor. 10/08/2024, the patient is sleeping. Based on the nursing staff, the patient did not sleep at all yesterday. However, he demonstrated no agitation. The patient is on Librium 25 mg p.o. 3 times daily. The patient is also on Seroquel 50 mg p.o. twice daily. Has not required any Ativan. Hemodynamically stable. He is on room air oxygen. Electrolytes are all within normal limits. No other sign ificant events overnight. No chest pain. No shortness of breath. No seizure activity. No agitation. No hallucinations. Objective - Vital Signs Vital signs: Vital Signs Temp 98.4 F 10/08/24 02:00 Pulse 81 10/08/24 02:00 Resp 16 10/08/24 02:00 BP 134/86 10/08/24 02:00 Pulse Ox 99 10/08/24 02:00 FiO2 Intake & Output 10/07/24 10/08/24 10/08/24 18:59 06:59 18:59 Intake Total 630 Balance 630 Weight 59.6 kg Intake: IV 100 Sodium Chloride 0.9% 1, 100 000 ml @ 50 mls/hr IV . Q20H [facility] Rx#:[id number] Intake, IV Titration 50 Amount Sodium Chloride 0.9% 1, 50 000 ml @ 50 mls/hr IV . Q20H [facility] Rx#:[id number] Oral 480 Other: Voiding Method Toilet Toilet Urinal # Voids 4 - Exam The patient appeared well nourished and normally developed. Vital signs as do cumented. Lethargic, sleepy and able to communicate Head exam is unremarkable. No scleral icterus or corneal arcus noted. Neck is without jugular venous distension, thyromegaly, or carotid bruits. C arotid upstrokes are brisk bilaterally. Lungs are clear to auscultation and percussion. Cardiac exam reveals the PMI to be normally sized and situated. Rhythm is regular. First and second heart sounds normal. No murmurs, rubs or gallops. Abdominal exam reveals normal bowel sounds, no masses, no organomegaly and no aortic enlargement. Extremities are nonedematous and both femoral and pedal pulses are normal. Examination of the skin revealed no evidence of significant rashes, suspicious appearing nevi or other concerning lesions. Neurologically, the patient is awake and alert and the patient does not have any focal neurological deficit. Cranial nerves are essentially intact. Neurologic exam is nonfocal and there is no significant agitation or confusion or tremors. - Labs CBC & Chem 7: 10/04/24 02:49 10/08/24 04:28 Labs: Abnormal Lab Results - Last 24 Hours (Table) 10/08/24 Range/Units 04:28 BUN 8 L (9-20) mg/dL Creatinine 0.56 L (0.66-1.25) mg/dL Assessment and Plan Plan: Delirium tremens secondary to alcohol withdrawal, recovering and the patient is currently off Precedex. Clinically stable, having some difficulties with sleep and insomnia. Maintained on Seroquel. Maintained on Librium. History of heavy alcohol consumption, primarily beer, up to 24 cans a day. History of hypertension. History of hyperlipidemia. Prior history of pancreatitis. Plan: Patient is currently on room air oxygen Normal saline at rate of 50 cc an hour Mental status is adequate and the patient is currently off Precedex Continue Librium 25 mg p.o. 3 times daily Continue Seroquel 50 mg p.o. twice daily Continue Ativan per [facility] protocol Monitor electrolytes Continue thiamine The patient can be transferred to regular medical surgical floor. Time with Patient: Greater than 30
== END 2024-10-08 15:23 | disposition home or self-care (01) | DRG 775 ==
LOC: 3SCARD 22:02 → 2SICU 10-04 01:26
PROVIDERS: ADMIT Family Medicine; ATTEND Internal Medicine
PROC: HZ2ZZZZ Detoxification Services for Substance Abuse Treatment (ICD-10-PCS; principal; 2024-10-03)
DX: F10.231 Alcohol dependence with withdrawal delirium (principal); E87.1 Hypo-osmolality and hyponatremia; F17.210 Nicotine dependence, cigarettes, uncomplicated; I10 Essential (primary) hypertension; E87.6 Hypokalemia; G47.00 Insomnia, unspecified; Z79.899 Other long term (current) drug therapy; Z71.41 Alcohol abuse counseling and surveillance of alcoholic; Z71.6 Tobacco abuse counseling; Z87.19 Personal history of other diseases of the digestive system
CPT/HCPCS: 80048; 83735; 85025